=== PATIENT | female | born 1975 | race Caucasian/White ===

== ENCOUNTER 2023-04-10 20:17 | Emergency (ER) | payer OTHER, SELFPAY ==
--- NOTE | 2023-04-10 | CTR_ITS ---
PROCEDURE INFORMATION: Exam: CT Abdomen And Pelvis With Contrast Exam date and time: 04/10/2023 11:17 PM Age: 47 years old Clinical indication: Abdominal pain; Localized; Left lower quadrant (llq); Prior surgery; Surgery date: 6+ months; Surgery type: Gb/hysterectomy, gastric sleeve; Additional info: Flank pain TECHNIQUE: Imaging protocol: Computed tomography of the abdomen and pelvis with contrast. Radiation optimization: All CT scans at this facility use at least one of these dose optimization techniques: automated exposure control; mA and/or kV adjustment per patient size (includes targeted exams where dose is matched to clinical indication); or iterative reconstruction. Contrast material: OMNI 350; Contrast volume: 100 ml; Contrast route: INTRAVENOUS (IV); REPORTING DATA: Count of CT and Cardiac NM exams in prior 12 months: This patient has received 0 known CTs and 0 known cardiac nuclear medicine studies in the 12 months prior to the current study. COMPARISON: CT angio chest [id number] 04/10/2023 11:13 PM RADIATION DOSE METRICS: Total DLP (mGy-cm): 698.87 FINDINGS: Diaphragm: Moderate to large hiatal hernia. Liver: Normal. No mass. Gallbladder and bile ducts: Cholecystectomy. Nondilated biliary system. Pancreas: Normal. No ductal dilation. Spleen: Normal. No splenomegaly. Adrenal glands: Normal. No mass. Kidneys and ureters: Simple right renal cyst medial interpolar cortex measures 2.2 cm transverse diameter. No dedicated imaging follow-up recommended. Negative hydronephrosis. Negative for perinephric inflammation. Stomach and bowel: Gastric sleeve surgical change. Negative bowel obstruction or perforation. No inflammatory wall thickening is identified. Appendix: No evidence of appendicitis. Intraperitoneal space: Unremarkable. No free air. No significant fluid collection. Vasculature: Unremarkable. No abdominal aortic aneurysm. Lymph nodes: Unremarkable. No enlarged lymph nodes. Urinary bladder: Unremarkable as visualized. Reproductive: Hysterectomy. Bones/joints: Unremarkable. No acute fracture. Soft tissues: Unremarkable. CT/CT abdomen pelvis w con* [id number] IMPRESSION: Negative for acute abdominopelvic pathology. COMMENTS: Consistent with the [place] [employer]'s Incidental Findings Committee white paper (J Am Anisha Radiol 2018): Any incidental renal lesion less than 1 cm or classified as too small to characterize, or any incidental cystic renal lesion characterized as simple-appearing, is likely benign. No follow-up imaging is recommended for these lesions per consensus recommendations based on imaging criteria.
--- NOTE | 2023-04-10 20:24 | ECG_ITS ---
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 Measurements Intervals [place] Rate: 72 P: 58 AR: 186 QRS: -1 QRSD: 105 T: 44 QT: 365 QTc: 401 Interpretive Statements SINUS RHYTHM No previous ECG available for comparison Electronically Signed On 04-11-2023 21:08:58 CDT by Bairon Iraheta M.D. [id number] f
[2023-04-10 20:28] VITALS: BP 130/100; PULSE 74; RESP 16; TEMP 36.6; O2SAT 99; BMI 26.6
--- NOTE | 2023-04-10 20:39 | XRR_ITS ---
PROCEDURE INFORMATION: Exam: XR Chest Exam date and time: 04/10/2023 8:42 PM Age: 47 years old Clinical indication: Pain; Chest pressure; Additional info: Cp TECHNIQUE: Imaging protocol: Radiologic exam of the chest. Views: 1 view. COMPARISON: No relevant prior studies available. FINDINGS: Tubes, catheters and devices: Overlying monitor leads. Lungs: Unremarkable. No consolidation. Pleural spaces: Unremarkable. No pleural effusion. No pneumothorax. Heart/Mediastinum: Unremarkable. No cardiomegaly. Bones/joints: Visualized osseous structures show no acute abnormality. XR/XR chest 1V portable [id number] IMPRESSION: No acute cardiopulmonary abnormality.
[2023-04-10 21:02] VITALS: RESP 18; O2SAT 98
[2023-04-10] MEDS: morphine 4 mg/mL SDV 1 mL IVP ×2 (21:02→22:31)
[2023-04-10] MEDS: ondansetron 2 mg/ML SDV 2 mL 4 MG IVP ×2 (21:02→22:30)
--- NOTE | 2023-04-10 21:03 | W.ED.CHESTPA ---
HPI - Chest Pain General: Chief Complaint: Chest Pain Stated Complaint: chest pain, sob, arm pain Time Seen by Provider: 04/10/23 20:32 History of Present Illness: 47-year-old healthy female. She presents with left-sided chest and back pain and neck pain. She notes that the pain radiates to her left arm. She also has some pain over her right eye. This started today. She became nauseated, diaphoretic, and vomited 1 time in the car on the way here. She is traveling, she is from 3 hours by car away from here. She says that they have been traveling for 4 weeks on and off. She has had some left leg pain recently. Associated symptoms: Reports nausea and vomiting; Deny abdominal pain, dyspnea, fever(s) or palpitations Review of Systems Const: Denies: fever(s), chills or body aches Eyes: Denies: change in vision Card: Reports: chest pain; Denies: palpitations Resp: Denies: dyspnea, productive cough, non-productive cough or wheezing GI: Reports: nausea and vomiting; Denies: abdominal pain, diarrhea or hematochezia : Denies: difficulty voiding Skin/Breast: Denies: rash Neuro: Denies: headache(s), weakness in extremities, dizziness or confusion Physical Exam Const: GENERAL APPEARANCE: cooperative; not ill appearing and not frail appearing HENMT: COMMON NORMALS: normocephalic, atraumatic and Normal external nose present HEAD & SCALP: normocephalic and atraumatic FACE & SINUS: normal facial exam and face symmetric NOSE: Normal external nose present Eye: COMMON NORMALS: Equal, round and reactive pupils present and EOMs intact bilaterally PUPIL: Yes Equal, round and reactive pupils present Neck/C-Spine: GENERAL: Yes trachea midline CERVICAL SPINE: Yes cervical ROM normal and Yes Cervical spine tenderness (left mid neck) Chest: CHEST: Yes Symmetrical chest wall rise Resp: COMMON NORMALS: normal respiratory effort, No retractions, No use of accessory muscles and clear to auscultation bilaterally AUSCULTATION: clear to auscultation bilaterally Cardio: COMMON NORMALS: regular rate and regular rhythm RATE: regular rate RHYTHM: regular rhythm GI: COMMON NORMALS: Normal to inspection, nondistended, normoactive bowel sounds present Extremity: COMMON NORMALS: no pedal edema Neuro: CHET COMA SCALE: document GCS findings Collison coma scale eye opening: Spontaneous Collison coma scale verbal response: Orientated Collison coma scale motor response: Obey commands Collison coma scale total score: 15 SENSORY EXAM: Yes extremities (intact) Psych: COMMON NORMALS: speech normal SPEECH: Yes normal speech Skin: COMMON NORMALS: no rashes or lesions noted GENERAL SKIN EXAM: no rashes or lesions noted Course Vital Signs: Vital signs: Vital Signs Temperature 97.9 F 04/11/23 01:40 Pulse Rate 64 04/11/23 01:40 Respiratory Rate 18 04/11/23 01:40 Blood Pressure 111/76 04/11/23 01:40 Pulse Oximetry 97 04/11/23 01:40 Oxygen Delivery Me thod Room Air 04/10/23 20:28 MDM - Chest Pain Medical Decision Making 47-year-old female with left-sided greater than right-sided back pain. She notes that it feels like a tearing sensation. She has some radicular pain to her left upper extremity. No overt shortness of breath. She vomited once. No fever here. CBC is normal. BMP is normal. Urinalysis shows nitrate positive urine with 10-15 whites and 0-4 reds. Chest x-ray is negative. She is given 1 dose of IV antibiotics. CTA of the chest with CT of the abdomen pelvis is pending. Her delta troponin is 0. EKG is normal. CT of the chest, with CT abdomen pelvis follow-through with contrast reveals no acute findings. She will be treated for the urinary tract infection. Close outpatient follow-up. Lab Data 04/10/23 21:00 04/10/23 21:00 Radiology Impressions Abdomen/Pelvis CT 04/10/23 00:00 IMPRESSION: Negative for acute abdominopelvic pathology. COMMENTS: Consistent with the [place] [employer]'s Incidental Findings Committee white paper (J Am Anisha Radiol 2018): Any incidental renal lesion less than 1 cm or classified as too small to characterize, or any incidental cystic renal lesion characterized as simple-appearing, is likely benign. No follow-up imaging is recommended for these lesions per consensus recommendations based on imaging criteria. Chest X-Ray 04/10/23 20:39 IMPRESSION: No acute cardiopulmonary abnormality. Chest CTA 04/10/23 22:49 IMPRESSION: Negative CTA chest. No acute pathology identified. COMMENTS: Consistent with the [place] [employer]'s Incidental Findings Committee white paper (J Am Anisha Radiol 2018): Any incidental renal lesion less than 1 cm or classified as too small to characterize, or any incidental cystic renal lesion characterized as simple-appearing, is likely benign. No follow-up imaging is recommended for these lesions per consensus recommendations based on imaging criteria. Laboratory Results WBC 8.76 10^3/uL (3.29-11.43) 04/10/23 21:00 RBC 4.14 10^6/uL (3.85-5.65) 04/10/23 21:00 Hgb 13.40 g/dL (11.27-16.99) 04/10/23 21:00 Hct 38.6 % (36-47) 04/10/23:00 MCV 93.2 fl (85-98) 04/10/23 21: MCH 32.4 pg (27-33) 04/10/23: MCHC 34.7 g/dL (30-55) 04/10/23:00 RDW 13.3 % (12.1-15.1) 04/10/23 21:00 Plt Count 306 10^3/cmm (157-399) 04/10/23 21:00 MPV 9.6 fL (7.4-10.4) 04/10/23 21:00 Neut % (Auto) 50.9 % 04/10/23 21:00 Lymph % (Auto) 37.8 % 04/10/23 21:00 [place] % (Auto) 6.8 % 04/10/23 21:00 Eos % (Auto) 3.5 % 04/10/23 21:00 Baso % (Auto) 0.8 % 04/10/23 21:00 Neut # (Auto) 4.45 10^3/uL (1.8-7.7) 04/10/23 21:00 Lymph # (Auto) 3.3 10^3/uL (0.8-4.8) 04/10/23 21:00 [place] # (Auto) 0.6 10^3/uL (0.2-0.9) 04/10/23 21:00 Eos # (Auto) 0.3 10^3/uL (0.0-0.8) 04/10/23 21:00 Baso # (Auto) 0.1 10^3/uL (0.0-0.1) 04/10/23 21:00 Nucleated RBC % (auto) 0 % 04/10/23 21:00 Nucleated RBCs # 0.0 /100WBC 04/10/23 21:00 D-Dimer 0.58 ug/mLFEU (0-0.59) 04/10/23 21:00 Sodium 140 mmol/L (136-145) 04/10/23 21:00 Potassium 3.6 mmol/L (3.5-5.1) 04/10/23 21:00 Chloride 105 mmol/L (98-107) 04/10/23 21:00 Carbon Dioxide 24 mmol/L (22-29) 04/10/23 21:00 Anion Gap 14.6 (5-19) 04/10/23 21:00 BUN 10 mg/dL (6-20) 04/10/23 21:00 Creatinine 0.6 mg/dL (0.5-0.9) 04/10/23 21:00 GFR Calculation 108.1 mL/min (90-130) 04/10/23 21:00 Glucose 96 mg/dL (65-115) 04/10/23 21:00 Calculated Osmolality 289 mOsm/kg (285-295) 04/10/23 21:00 Calcium 8.9 mg/dL (8.5-10.5) 04/10/23 21:00 Total Bilirubin 0.2 mg/dL (0.15-1.2) 04/10/23 21:00 AST 20 U/L (0-32) 04/10/23 21:00 ALT 18 U/L (0-33) 04/10/23 21:00 Alkaline Phosphatase 61 U/L (35-105) 04/10/23 21:00 Troponin T Baseline < 6 ng/L (0-10) 04/10/23 21:00 Troponin T 120 Minute 6.0 ng/L (0-10) 04/10/23 22:50 Delta Troponin T 0.63543 ABS# (0-10) 04/10/23 22:50 NT-Pro-B Natriuret Pep 160 pg/mL (0-125) H 04/10/23 21:00 Total Protein 7.7 g/dL (6.6-8.7) 04/10/23 21:00 Albumin 4.5 g/dL (3.5-5.2) 04/10/23 21:00 Globulin 3.2 g/dL (1.3-4.6) 04/10/23 21:00 Lipase 81 U/L (13-60) H 04/10/23 21:00 Urine Color Dark yellow (Yellow) 04/10/23 23:04 Urine Appearance Sl cloudy (CLEAR) A 04/10/23 23:04 Urine pH 5 (5-7) 04/10/23 23:04 Ur Specific [place] 1.030 (1.005-1.030) 04/10/23 23:04 Urine Protein Trace (Negative) 04/10/23 23:04 Urine Glucose (UA) Norm (Normal) 04/10/23 23:04 Urine Ketones 1+ (Negative) H 04/10/23 23:04 Urine Blood 2+ (Negative) H 04/10/23 23:04 Urine Nitrate Positive (Negative) H 04/10/23 23:04 Urine Bilirubin Neg (Negative) 04/10/23 23:04 Urine Urobilinogen Neg mg/dL (Negative) 04/10/23 23:04 Ur Leukocyte Esterase Negative (Negative) 04/10/23 23:04 Urine RBC 0-4 /hpf (0-2) H 04/10/23 23:04 Urine WBC 10-15 /hpf (0-5) H 04/10/23 23:04 Ur Squamous Epith Cells 0-4 /hpf (0-5) H 04/10/23 23:04 Amorphous Sediment Not Reportable 04/10/23 23:04 Urine Bacteria 3+ /hpf (NONE) H 04/10/23 23:04 Urine Mucus 2+ /hpf 04/10/23 23:04 All radiology interpretation(s) finalized by discharge Discharge Plan Discharge Patient Disposition: Home Clinical Impression: Back pain, Urinary tract infection Condition: Stable Prescriptions: New cefdinir 300 mg capsule 300 mg PO BID Qty: 14 0RF hydrocodone-acetaminophen 5-325 mg tablet 1 tab PO Q8H PRN (Reason: pain) Qty: 7 0RF Discharge Orders: Discharge ED (Routine); Ordered 04/11/23 Ordered By: Freedom Trinh Patient Instructions: Urinary Tract Infection in Women (ED), Back Pain (ED), Opioid Safety, Pain Management Activity Restrictions/Additional Instructions: Medication as directed. Return for fever despite 2-3 doses of antibiotics, worsening pain despite treatment, vomiting liquids or medications, other concerning symptoms. Follow-up with your doctor later this week. 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
[2023-04-10 21:09] LABS: Basophils # 0.1 10^3/uL (0.0-0.1); Basophils % 0.8 %; Eosinophils # 0.3 10^3/uL (0.0-0.8); Eosinophils % 3.5 %; Hematocrit 38.6 % (36-47); Lymphocytes # 3.3 10^3/uL (0.8-4.8); Lymphocytes % 37.8 %; Mean Corpuscular HGB Conc 34.7 g/dL (30-55); Mean Corpuscular Hemoglobin 32.4 pg (27-33); Mean Corpuscular Volume 93.2 fl (85-98); Mean Platelet Volume 9.6 fL (7.4-10.4); Monocytes # 0.6 10^3/uL (0.2-0.9); Monocytes % 6.8 %; Neutrophils # 4.45 10^3/uL (1.8-7.7); Neutrophils % 50.9 %; Nucleated Red Blood Cells % 0 %; Platelet Count 306 10^3/cmm (157-399); Red Blood Count 4.14 10^6/uL (3.85-5.65); Red Cell Distribution Width 13.3 % (12.1-15.1); White Blood Count 8.76 10^3/uL (3.29-11.43)
[2023-04-10 21:21] LABS: D Dimer 0.58 ug/mLFEU (0-0.59)
[2023-04-10 21:24] LABS: Troponin(5th) Baseline < 6 ng/L (0-10)
[2023-04-10 21:34] LABS: Alanine Aminotransferase 18 U/L (0-33); Albumin Level 4.5 g/dL (3.5-5.2); Alkaline Phosphatase 61 U/L (35-105); Anion Gap 14.6 (5-19); Aspartate Amino Transferase 20 U/L (0-32); Blood Urea Nitrogen 10 mg/dL (6-20); Calcium 8.9 mg/dL (8.5-10.5); Carbon Dioxide 24 mmol/L (22-29); Chloride 105 mmol/L (98-107); Globulin 3.2 g/dL (1.3-4.6); Glomerular Filtration Rate 108.1 mL/min (90-130); Glucose 96 mg/dL (65-115); Lipase 81 U/L (13-60); NT Pro B Type Natriuretic Pept 160 pg/mL (0-125); Osmolality Calculated 289 mOsm/kg (285-295); Potassium 3.6 mmol/L (3.5-5.1); Sodium 140 mmol/L (136-145); Total Bilirubin 0.2 mg/dL (0.15-1.2); Total Protein 7.7 g/dL (6.6-8.7)
[2023-04-10 22:31] VITALS: RESP 16; O2SAT 99
[2023-04-10] MEDS: dexamethasone 10 mg/mL INJ IVP (22:35)
--- NOTE | 2023-04-10 22:39 | ECG_ITS ---
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 Measurements Intervals [place] Rate: 63 P: 55 [place]: 192 QRS: 4 QRSD: 108 T: 36 QT: 399 QTc: 410 Interpretive Statements SINUS RHYTHM No previous ECG available for comparison Electronically Signed On 04-11-2023 21:13:11 CDT by Bairon Iraheta M.D. [id number]
--- NOTE | 2023-04-10 22:49 | CTR_ITS ---
PROCEDURE INFORMATION: Exam: CTA Chest With Contrast Exam date and time: 04/10/2023 11:13 PM Age: 47 years old Clinical indication: Chest wall pain; Patient HX: Pain in chest and back; Additional info: Left chest, flank pain TECHNIQUE: Imaging protocol: Computed tomographic angiography of the chest with contrast. Exam focused on the arteries. 3D rendering (Not supervised by radiologist): MIP and/or 3D reconstructed images were created by the technologist. Radiation optimization: All CT scans at this facility use at least one of these dose optimization techniques: automated exposure control; mA and/or kV adjustment per patient size (includes targeted exams where dose is matched to clinical indication); or iterative reconstruction. Contrast material: OMNI 350; Contrast volume: 100 ml; Contrast route: INTRAVENOUS (IV); REPORTING DATA: Count of CT and Cardiac NM exams in prior 12 months: This patient has received 0 known CTs and 0 known cardiac nuclear medicine studies in the 12 months prior to the current study. COMPARISON: CR (CHEST, ) 04/10/2023 8:42 PM RADIATION DOSE METRICS: Total DLP (mGy-cm): 455.09 FINDINGS: Pulmonary arteries: Normal. No pulmonary emboli. Aorta: Unremarkable. No aortic aneurysm. No aortic dissection. Lungs: Unremarkable. No consolidation. No masses. Pleural spaces: Unremarkable. No pneumothorax. No pleural effusion. Heart: Unremarkable. No cardiomegaly. No pericardial effusion. Lymph nodes: Unremarkable. No enlarged lymph nodes. Gallbladder and bile ducts: Cholecystectomy. Nondilated biliary system. Kidneys and ureters: 2.2 cm transverse diameter simple interpolar cortical cyst within the medial side of the right kidney. Stomach and bowel: Gastric sleeve surgical changes. Bones/joints: Unremarkable. No acute fracture. Soft tissues: Moderate to large size hernia. CT/CT angio chest [id number] IMPRESSION: Negative CTA chest. No acute pathology identified. COMMENTS: Consistent with the [place] [employer]'s Incidental Findings Committee white paper (J Am Anisha Radiol 2018): Any incidental renal lesion less than 1 cm or classified as too small to characterize, or any incidental cystic renal lesion characterized as simple-appearing, is likely benign. No follow-up imaging is recommended for these lesions per consensus recommendations based on imaging criteria.
[2023-04-10 23:12] VITALS: BP 111/76
[2023-04-10 23:13] VITALS: BP 111/76; PULSE 64; RESP 18; O2SAT 97
[2023-04-10 23:16] LABS: Bilirubin Urine Neg (Negative); Blood Urine 2+ (Negative); Glucose Urine UA Norm (Normal); Ketones Urine 1+ (Negative); Leukocyte Esterase Urine Negative (Negative); Nitrate Urine Positive (Negative); Protein Urine Trace (Negative); Urine Color Dark Yellow (Yellow); Urobilinogen Urine Neg (Negative); pH Urine 5 (5-7)
[2023-04-10 23:17] LABS: Add Urine Culture? Yes; Add Urine Microscopic? YES; Bacteria Urine 3+ /hpf; Mucus Urine 2+ /hpf; RBC Urine 0-4 /hpf (0-2); Squamous Epithelial Cell Urine 0-4 /hpf (0-5)
[2023-04-10] MEDS: iohexol 350 mg/mL 500 mL Btl (per mL) IV (23:27)
[2023-04-10 23:29] LABS: Troponin 5 2HR Delta 0.00001 ABS# (0-10)
[2023-04-11] MEDS: cefTRIAXone 1,000 MG in sodium chloride 0.9% (plus) 50 ML 100 MG IV (00:07)
[2023-04-11] MEDS: oxyCODONE-APAP 5-325 mg Tablet 2 TAB PO (01:32)
[2023-04-11 01:40] VITALS: BP 111/76; PULSE 64; RESP 18; TEMP 36.6; O2SAT 97
== END 2023-04-11 01:41 | disposition home or self-care (01) ==
PROVIDERS: Emergency Provider Emergency Medicine
DX: N39.0 Urinary tract infection, site not specified (principal); M54.9 Dorsalgia, unspecified
CPT/HCPCS: 36415; 71045; 71275; 74177; 80053; 81001; 83690; 83880; 84484; 85025; 85378; 87077; 87086; 87186; 93005; 96365; 96375; 96376; 99285; J0696; J1100; J2270; J2405; Q9967